=== PATIENT | female | born 1995 ===

== ENCOUNTER 2022-05-09 19:35 | Emergency (ER) | payer OTHER ==
[2022-05-09 19:42] VITALS: BP 137/93; PULSE 78; RESP 18; TEMP 97.9; BMI 23.3
[2022-05-09] MEDS ORDERED: FAMOTIDINE 20 MG/50 ML IVPB 20 MG/50 ML MG IVPB ONE ×2 (20:14→20:21)
[2022-05-09] MEDS ORDERED: SODIUM CHLORIDE 1,000 ML IV STA (20:14)
[2022-05-09 20:34] LABS: HEMATOCRIT 36.7 % (32.4-45.2); HEMOGLOBIN 13.4 G/dL (10.7-15.3); MCH 32.5 pg (25.7-33.7); MCHC 36.4 g/dl (32.0-36.0); MEAN CELL VOLUME 89.3 fl (80-96); MEAN PLT VOLUME 8.6 fl (7.5-11.1); PLATELET COUNT 194.2 10^3/uL (134-434); RBC 4.11 10^6/uL (3.60-5.2); RDW 13.1 % (11.6-15.6); WHITE BLOOD COUNT 7.6 10^3/uL (4.0-10.8)
[2022-05-09 20:45] LABS: ALBUMIN 4.2 g/dl (3.4-5.0); BILIRUBIN,TOTAL 0.8 mg/dl (0.2-1); CALCIUM 9.6 mg/dl (8.5-10); CREATININE 0.7 mg/dl (0.55-1.3); TOT PROT 6.3 g/dl (6.4-8.2)
[2022-05-09 20:50] LABS: PLATELET ESTIMATE ADEQUATE
== END 2022-05-09 21:07 | disposition home or self-care (01) ==
LOC: FER 19:35
PROC: 3E033GC Introduction of Other Therapeutic Substance into Peripheral Vein, Percutaneous Approach (ICD-10-PCS; principal; 2022-05-09)
PROC: 3E0337Z Introduction of Electrolytic and Water Balance Substance into Peripheral Vein, Percutaneous Approach (ICD-10-PCS; 2022-05-09)
DX: K29.70 Gastritis, unspecified, without bleeding (principal); K21.9 Gastro-esophageal reflux disease without esophagitis
CPT/HCPCS: 36415; 80053; 85027; 99284-25